=== PATIENT | male | born 1960 | race African-American/Black ===

== ENCOUNTER → 2020-12-16 08:50 | Outpatient (CLI) | payer MEDICAID, SELFPAY ==
--- NOTE | 2020-12-16 08:56 | ART_ITS ---
Reason For Study: PVD Procedure A bilateral lower extremity continuous wave Doppler with analog waveform analysis,segmental pressures,and ankle brachial indexes with exercise. Left Segmental Pressures Left brachial= 161mmHg. Left posterior tibial artery = 166mmHg. Left dorsalis pedis artery = 167mmHg. The left dorsalis pedis waveforms are biphasic. The left posterior tibial artery waveforms are triphasic. Right Segmental Pressures Right brachial= 147mmHg. Right thigh = 197mmHg. Right calf = 143mmHg. Right posterior tibial artery = 131mmHg. Right dorsalis pedis artery = 115mmHg. Right digit = 85 mmHg. The right dorsalis pedis waveforms are biphasic. The right posterior tibial artery waveforms are biphasic. Indices The right ankle brachial index by the dorsalis pedis is 0.71. The right ankle brachial index by the posterior tibial artery is 0.81. The right digital-brachial index is 0.53. The right post exercise ankle brachial index is 0.47. The left ankle brachial index by the dorsalis pedis is 1.04. The left ankle brachial index by the posterior tibial artery is 1.03. The left digital-brachial index is 0.55. The left post exercise ankle brachial index is 1.14. VL/Lower Ext Art Exam w/ Exercise Interpretation Summary Moderately severe right lower extremity arterial occlusive disease with abnorma l exercise response consistent with vascular claudication Normal left lower extremity resting ankle-brachial indices and normal left lowe r extremity response to exercise Abnormal bilateral digital brachial indices possibly consistent with small vess el disease or temperature effect. Clinical correlation would be appropriate. Ordering Physician: Jovanni Su Referring Physician: Fredis Parra Performed By: Alma Oviedo RVT
== END ==
PROVIDERS: PCP Physician Assistant; Referring Provider Surgery; Visit Provider Surgery
DX: I73.9 Peripheral vascular disease, unspecified (principal)
CPT/HCPCS: 93924

== ENCOUNTER 2021-02-04 06:24 | Day surgery (SDC) | payer MEDICAID, SELFPAY ==
[2020-12-24 15:43] VITALS: BMI 26.4
[2021-02-03 08:58] VITALS: BMI 26.4
[2021-02-04 06:45] LABS: Hematocrit 45.5 % (40-54); Hemoglobin 15.7 g/dL (13.0-16.5); Mean Corp Hgb Conc 34.5 g/dL (32-36); Mean Corpuscular Hgb 32.2 pg (27.0-32.0); Mean Corpuscular Volume 93.4 fL (80-94); Mean Platelet Vol. 8.5 fl (6.2-12.0); Platelet Count 256 K/mm3 (150-450); RBC Distribution Width CV 12.4 % (11.6-14.6); RBC Distribution Width SD 42.8 fl (35.1-43.9); Red Blood Count 4.87 M/mm3 (4.6-6.2); White Blood Count 6.9 K/mm3 (4.4-11.0)
[2021-02-04 07:03] LABS: Anion Gap 2 (5-15); BUN 10 mg/dL (7-18); BUN/Creat Ratio 9.7 RATIO (10-20); Calcium,Total 8.5 mg/dL (8.5-10.1); Chloride 107 mmol/L (98-107); Creatinine, Serum 1.03 mg/dL (0.70-1.30); EST Glomerular Filtration Rate 78 mL/min (>60); Est Glom Filt Rate - Afr Amer 94 mL/min (>60); Estimated Creatinine Clearance 82.66 ml/min; Glucose 98 mg/dL (74-106); Potassium 3.9 mmol/L (3.5-5.1); Sodium Level 139 mmol/L (136-145)
--- NOTE | 2021-02-04 08:05 | HP.PCM_ITS ---
History and Physical Date of Admission: 02/04/21 Intake Vital Signs 12/24/20 15:43 Height 6 ft Weight: 195 lb 4 oz BMI 26.4 BP 163/93 H Blood Pressure Location Rt brachial Position Sitting Respiration 18 Pulse 69 Pulse Source NIBP Temp 97.4 F L Temp Source Temporal Pulse Oximetry (%) 97 Oxygen Delivery Method room air Intake Visit Reasons: US 12/16 LEG NUMBNESS Allergies atorvastatin Allergy (Mild, Verified 12/24/20 15:44) rash [facility] Medical History (Updated 12/24/20 @ 15:20 by Alysia De Leon) CAD (coronary artery disease) Dyslipidemia HIV (human immunodeficiency virus infection) HTN (hypertension) Myocardial infarction Ocular hypertension PAD (peripheral artery disease) PVD (peripheral vascular disease) Sleep apnea Surgical History (Updated 12/24/20 @ 15:20 by Alysia De Leon) History of cardiac cath (~11/2013) History of esophagogastroduodenoscopy (EGD) (~2018) Family History (Updated 12/24/20 @ 15:38 by Alysia De Leon) Father Diabetes Heart disease Mother CAD (coronary artery disease) CVA (cerebral vascular accident) Social History Smoking Status: Former smoker HPI: Patient is a 60 y/o M I am following for peripheral arterial disease with claudication. Patient presents fro an update history and physical for an elective APLL procedure. Patient denies recent hospitalizations or illnesses. He denies medication changes. He stopped his Plavix and aspirin on Tuesday. He has a history of HIV and myocardial infarction. He has previously had intervention of the right lower extremity by Dr. Su. Patient denies any side effects or complications from anesthesia previously. DUSTIN DARBY, is a 60 M who presents to the office today for surgical co nsultation regarding right lower extremity calf claudication. This is a very pleasant 60-year-old gentleman. I assisted him as noted below with a advanced right lower extremity endovascular procedure treating a occluded right popliteal right tibioperoneal trunk proximal right posterior tibial and superficial femoral artery with endovascular angioplasty as noted. He states that about 3 years ago he did have a myocardial infarction since he seen me last. He had a cardiac catheterization but apparently the vessel involved was too small so he did not have angioplasty years cardiac stenting. Treated with medication. He has had trouble over the years with statin medications causing his rate rising of his CK. He is currently being managed with every 2 weekly home injection treatment. He has done well with his right leg except for the past several months. Now he will calf claudicate at ever shortening distances. He has difficult walking around [employer]. His previous history reflects the following intervention: It is of note that both retrograde access via the left common femoral to the right lower extremity was performed and retrograde access via the right posterior tibial at the level of the ankle was required. This was a highly challenging procedure. DATE OF SERVICE: July 26, 2014 PREOPERATIVE DIAGNOSIS: Quality of life limiting right lower extremity claudication. POSTOPERATIVE DIAGNOSES: Multisegmental peripheral vascular occlusive disease with occlusion of the right popliteal proximal portions of the posterior tibial, tibioperoneal trunk, peroneal and anterior tibial. PROCEDURE: Abdominopelvic bilateral lower extremity arteriogram right popliteal, tibioperoneal trunk and posterior tibial 3.5 x 210 mm EverCross; angioplasty right posterior tibial, tibioperoneal trunk, popliteal and distal superficial femoral artery 5 x 120 mm EverCross angioplasty. Subsequent to the angioplasty, there is now directed inline flow from the right and reconstitution of flow within the right popliteal, tibioperoneal trunk and posterior tibial. There is evidence of flow within the proximal right anterior tibial and peroneal albeit with small heavily diseased vessels. Left lower extremity demonstrates a patent superficial femoral artery. In the distal left popliteal, there is 50% narrowing just at the bifurcation of the tibioperoneal trunk. There also appears to be 70% to 80% stenosis of the very proximal portion of the left anterior tibial. There is initial 3-vessel runoff to the left lower extremity. Furthermore detail images were not pursued in means of saving contrast. IMPRESSION: Occluded right popliteal, tibioperoneal trunk and proximal portions of the anterior tibial, peroneal and posterior tibial with reconstituted flow through the popliteal, tibioperoneal trunk and posterior tibial in particular. A 50% stenosis of the left distal popliteal at the tibioperoneal trunk with at least 70% stenosis at the origin of the left anterior tibial. His newest testing reflects the following results: December 16, 2020 Reason For Study: PVD Procedure A bilateral lower extremity continuous wave Doppler with analog waveform analysis,segmental pressures,and ankle brachial indexes with exercise. Left Segmental Pressures Left brachial= 161mmHg. Left posterior tibial artery = 166mmHg. Left dorsalis pedis artery = 167mmHg. The left dorsalis pedis waveforms are biphasic. The left posterior tibial artery waveforms are triphasic. Right Segmental Pressures Right brachial= 147mmHg. Right thigh = 197mmHg. Right calf = 143mmHg. Right posterior tibial artery = 131mmHg. Right dorsalis pedis artery = 115mmHg. Right digit = 85 mmHg. The right dorsalis pedis waveforms are biphasic. The right posterior tibial artery waveforms are biphasic. Indices The right ankle brachial index by the dorsalis pedis is 0.71. The right ankle brachial index by the posterior tibial artery is 0.81. The right digital-brachial index is 0.53. The right post exercise ankle brachial index is 0.47. The left ankle brachial index by the dorsalis pedis is 1.04. The left ankle brachial index by the posterior tibial artery is 1.03. The left digital- brachial index is 0.55. The left post exercise ankle brachial index is 1.14. VL/Lower Ext Art Exam w/ Exercise Interpretation Summary Moderately severe right lower extremity arterial occlusive disease with abnormal exercise response consistent with vascular claudication Normal left lower extremity resting ankle-brachial indices and normal left lower extremity response to exercise Abnormal bilateral digital brachial indices possibly consistent with small vessel disease or temperature effect. Clinical correlation would be appropriate. Ordering Physician: Jovanni Su Referring Physician: Fredis Prara Performed By: Alma Oviedo RVT 12/16/20 1153Date ROS General General: No weight change, appetite, fatigue, colon cancer, breast cancer or weakness HEENT HEENT: No difficulty swallowing, eye injury, eye surgery, swollen glands or hoarseness Endo Endocrine: No thyroid disease, diabetes mellitus, thyroid cancer, Hair loss, heat intolerance or cold intolerance Musc Musculoskeletal: No back problems, arthritis, rheumatoid arthritis, gout or joint pain Cardio Cardiovascular: Yes heart disease, high blood pressure and heart attack; No murmur, pacemaker, atrial fibrillation, heart stent, palpitations, shortness of breat with exertion or chest pain Psych Psychiatric: No depression, anxiety or hearing voices Resp Respiratory: No shortness of breath, Yes sleep apnea, No cough, No COPD, No asthma, No emphysema and No wheezing Gastro Gastrointestinal: No abdominal pain, No nausea or vomiting, No diarrhea, No constipation, No blood in stool, No acid reflux, No hemorrhoids, No ulcers, No gallbladder problem and No black,tarry stools Chris Hematologic: Yes blood thinners, No blood disorders, No bleeding, No anemia and No blood clots Neuro Neurologic: No weakness Exam Const General: cooperative, healthy appearing, comfortable and no acute distress Nutritional Appearance: average body habitus Orientation: alert and awake HENUT Head: normal to inspection Eyes General: appearance normal, both eyes and all related structures Resp Effort & Inspection: normal respiratory effort Auscultation: clear to auscultation bilaterally Cardio Rate: regular rate Rhythm: regular rhythm Other: Bilateral femoral pulses 3+. Left popliteal 3+. Left DP 2+. Left PT 3+. Right popliteal 0. Right posterior tibial 3+. Right DP 1+ GI Palpation: soft and no hepatosplenomegaly Auscultation: normal bowel sounds and no bruits Musc Cervical Spine: normal cervical lordosis Skin General: no rashes or lesions noted Neuro General: patient alert, patient awake and patient oriented x3 Extrem General: no calf tenderness bilaterally Psych Appearance: grossly normal COVID (Procedure Consent) Procedure Criteria Procedure Criteria: Yes Elective The surgeon/proceduralist and patient have discussed in detail the risk of exposure to and/or potential harm posed by the COVID-19 virus with having a surgery/procedure at this time versus the risk of delaying the surgery/procedure. It is not possible to know either the risk of delaying the surgery or procedure or chance of getting an infection with perfect accuracy, but a joint decision was made between the patient and the surgeon/proceduralist to proceed at this time with the scheduled surgery/procedure as indicated on the consent form. Assessment & Plan Assessment/Plan (1) PAD (peripheral artery disease): PLAN: Dr. Su will plan to perform an abdominal pelvic arteriogram with right lower extremity intervention. Procedure details, risks and benefits have been reviewed. Patient has had the opportunity to ask and have questions answered. Patient verbally understands and agrees with the plan. Of note per Dr. Su, As noted previously had to obtain access via the left common femoral and retrograde via the right posterior tibial at the ankle in order to salvage his situation. Hopefully that technique does not need to be utilized at this time. Charges/Coding Visit Charges OBSV E&M: 34723 Initial observation care L1 (No charge; update H&P)
--- NOTE | 2021-02-04 10:59 | OP.PCM_ITS ---
Problems Associated Problem List Diagnoses (1) PAD (peripheral artery disease): Report of Operation Date of Procedure: 02/04/21 Pre-Operative Diagnosis: Right lower extremity calf claudication Post-Operative Diagnosis: Right lower extremity calf claudication with diffuse irregular disease right distal superficial femoral artery and right popliteal artery Surgery/Procedure Performed:: Abdominal pelvic right lower extremity arteriogram with right superficial femoral artery and popliteal artery large vessel Hawk 1 atherectomy and right distal superficial femoral artery popliteal artery 6 x 200 mm ever cross angioplasty Description of Surgical Findings:: Timeout informed consent was obtained. 60-year-old gent was taken to the special procedures lab placed upon the table. Bilateral groins were sterilely prepped and draped. He received sodium bicarbonate loading preprocedure. Throughout the procedure and aliquots he received a total of 50 mcg of fentanyl and 4 mg of Versed his intravenous sedation. Under ultrasound guidance the left common femoral artery was identified 2% lidocaine was instilled as local anesthetic a total of 10 cc was used. Under ultrasound guidance a micropuncture needle was used to gain retrograde access into the left common femoral artery followed by Salinger wire technique followed by micropuncture sheath followed by 035 J-wire followed by a 5 Japanese Terumo sheath. Using an 035 angled Glidewire and a 5 Japanese universal flush catheter was placed in the distal abdominal aorta. 10 cc a second of 8 cc of contrast was used to obtain a abdominal pelvic arteriogram. Using the Glidewire the flush catheter advanced down into the proximal right superficial femoral artery and then static views were obtained of the right upper leg and below the knee area. Having achieved that I felt that I could perform intervention due to the multiple areas of clinic significant stenosis involving the right distal superficial femoral artery and popliteal artery. I placed an 035 Magic wire exchanged out the 5 Japanese sheath for a 7 Japanese destination sheath. The patient received 10,000 and's of heparin. I then was able to use an 035 Glidewire and an 035 quick cross catheter and gain access through the area of stenosis. I placed a quick cross catheter infrageniculate and then placed a 6 mm spider device into the infrageniculate tibial peroneal trunk. Then I used a Hawk 1 large vessel device and did atherectomy of the right distal superficial femoral artery and right popliteal artery. 4 separate complete passes with emptying of the chamber were performed. There was dramatic improvement in the areas of stenosis. Then placed a 6 x 200 mm ever cross balloon perform balloon angioplasty of said area. This was only done up to 9 jaquelin of pressure. Completion views demonstrated dramatic improvement from preoperatively. There appeared to be just some slight periarterial extravasation within the adventitia. I replaced the balloon placed into an atmosphere of 4 jaquelin and held it for another 3 minutes. The patient had absolutely no discomfort in the right popliteal space. Completion views of the right lower extremity were obtained. Subsequently the sheath was withdrawn over wire. I exchanged out for a short 7 Japanese sheath. A 6-7 Japanese minx device was deployed in the left groin with good hemostasis. The patient then did receive 10 mg of protamine intravenously. He had a 1+ right DP pulse and a bounding 3+ right PT pulse. No discomfort throughout the procedure. The right foot remained warm and viable throughout. He was subsequently taken to the holding room. Images demonstrated patent though slightly irregular distal abdominal aorta with patent bilateral common axis external iliacs and internal iliacs. The right pr oximal superficial femoral and profundofemoral are widely patent. There is a shelflike plaque at Mandeep's canal on the right. There is diffuse disease of the right distal superficial femoral artery and then just at the superior aspect of the patella the popliteal appears to have a focal area of about 80 to 90% stenosis. There is irregularity throughout the entire popliteal. The infrageniculate popliteal has further disease of at least 70% over an area of 2 cm long. The right anterior tibial is rather diminutive. The right posterior tibial is the dominant vessel. Subsequent to the atherectomy and angioplasty now there is dramatic improvement in all areas of stenosis. There is some irregularity of the vessel in the immediate right retrogeniculate area and that small area of adventitial brief blush. There is good flow in line through the right posterior tibial in particular. It is of note that upon retrieval of the spider device there was no material within. Jovanni Su M.D., F.A.C.S. Surgeon: Jovanni Su Type of Anesthesia: IV Sedation and Local
[2021-02-04 15:15] VITALS: BP 136/68; PULSE 61; RESP 14; TEMP 36.4; O2SAT 98
[2021-02-04 15:30] VITALS: BP 148/73; PULSE 59; RESP 14; O2SAT 97
[2021-02-04] MEDS: 0.9% Normal Saline 1,000 ML 100 ML IV (15:37)
[2021-02-04] MEDS: Acetaminophen 325 MG Tablet 650 MG PO (15:37)
[2021-02-04 16:00] VITALS: BP 139/77; PULSE 63; RESP 14; O2SAT 97
[2021-02-04 16:30] VITALS: BP 154/74; PULSE 60; RESP 16; O2SAT 98
[2021-02-04 17:30] VITALS: BP 159/78; PULSE 64; RESP 14; O2SAT 98
--- NOTE | 2021-02-04 17:30 | NURSING ---
Dr. Su at bedside to see patient. notified of slight blood on groin dressing and elevated BP 150's systolic. Dr. Su was not concerned about the small amount of blood, ordered to give his home doses of Coreg and isosorbide for blood presure. Also ordered to change patients dressing prior to discharge. Pt still ok to be discharged after bedrest is up as long as his groin site remains soft and free from complication.
--- NOTE | 2021-02-04 17:40 | PCM.PN.SRG ---
Subjective Subjective Patient has no complaints other than back discomfort from having to lie still. No complaint of left groin pain. No complaint of right popliteal or calf pain Objective Data Objective Data Vital Signs: Vital Signs Temp Pulse Resp BP Pulse Ox 97.5 F L 64 14 159/78 H 98 02/04/21 15:15 02/04/21 17:30 02/04/21 17:30 02/04/21 17:30 02/04/21 17:30 Oxygen Delivery Method Room Air Weight: 195 lb Body Mass Index (BMI) 26.4 Lab / Micro Data Result Diagrams: 02/04/21 06:28 02/04/21 06:28 Labs: Laboratory Results - last 24 hr 02/04/21 06:28: Sodium 139, Potassium 3.9, Chloride 107, Carbon Dioxide 30.0, Anion Gap 2 L, BUN 10, Creatinine 1.03, Estim Creat Clear Calc 82.66, Est GFR (MDRD) Af Amer 94, Est GFR (MDRD) Non-Af 78, BUN/Creatinine Ratio 9.7 L, Glucose 98, Calcium 8.5 02/04/21 06:28: WBC 6.9, RBC 4.87, Hgb 15.7, Hct 45.5, MCV 93.4, MCH 32.2 H, MCHC 34.5, RDW Std Deviation 42.8, RDW Coeff of Sybil 12.4, Plt Count 256, MPV 8.5 Physical Exam Extremity Extremity Narrative: Left groin: Very minimal drainage on the dressing. Supple, nontender, Right popliteal space very soft supple nontender. 3+ right popliteal pulse. 3+ right posterior tibial pulse Assessment & Plan Assessment/Plan (1) PAD (peripheral artery disease): PLAN: Patient appears stable status post retrograde access left common femoral artery to perform intervention to the right lower extremity. He still has another 1 hour of bedrest. If he continues to make uncomplicated recovery he will be allowed for discharge. Jovanni Su M.D., F.A.C.S.
[2021-02-04] MEDS: Carvedilol 6.25 MG Tablet PO (17:54)
[2021-02-04] MEDS: Isosorbide Mononitrate 30 MG Tablet PO (17:54)
[2021-02-04 18:33] VITALS: BP 160/80; PULSE 68; RESP 14; TEMP 36.4; O2SAT 94
--- NOTE | 2021-02-04 19:15 | NURSING ---
1830 patients bedrest was completed. This RN assisted patient out OOB and to the restroom. He then walked around in the room and tolerated it well. His left groin site remained soft and free from signs of bleeding. The dressing was then changed per physician order. Patient IV was removed, discharge instructions again reviewed with patient. He was then discharged out in a wheelchair.
== END 2021-02-04 15:29 | disposition home or self-care (01) ==
LOC: CLSP 06:34 → PCU 02-05 09:44
PROVIDERS: PCP Physician Assistant; Referring Provider Surgery; Visit Provider Surgery
DX: I73.9 Peripheral vascular disease, unspecified (principal); I25.10 Atherosclerotic heart disease of native coronary artery without angina pectoris; E78.5 Hyperlipidemia, unspecified; I10 Essential (primary) hypertension; I25.2 Old myocardial infarction; G47.30 Sleep apnea, unspecified; Z79.899 Other long term (current) drug therapy; Z87.891 Personal history of nicotine dependence
CPT/HCPCS: 36200; 36245; 36415; 37225; 75625; 75710; 76937; 80048; 85027; 99152; 99153; C1714; C1760; J7030; J7040; Q9967; C1725; C1769; C1884; C1887; C1894

== ENCOUNTER → 2021-03-27 13:38 | Outpatient (CLI) | payer MEDICAID, SELFPAY ==
--- NOTE | 2021-03-27 13:40 | ART_ITS ---
Reason For Study: Claudication Procedure A bilateral lower extremity continuous wave Doppler with analog waveform analysis,segmental pressures,and ankle brachial indexes with exercise. Left Segmental Pressures Left brachial= 137mmHg. Left posterior tibial artery = 175mmHg. Left dorsalis pedis artery = 149mmHg. Left digit = 82 mmHg. The left dorsalis pedis waveforms are biphasic. The left posterior tibial artery waveforms are triphasic. Right Segmental Pressures Right brachial= 140mmHg. Right posterior tibial artery = 167mmHg. Right dorsalis pedis artery = 159mmHg. Right digit = 70 mmHg. The right dorsalis pedis waveforms are biphasic. The right posterior tibial artery waveforms are triphasic. Indices The right ankle brachial index by the dorsalis pedis is 1.14. The right ankle brachial index by the posterior tibial artery is 1.19. The right digital-brachial index is 0.50. The left ankle brachial index by the dorsalis pedis is 1.06. The left ankle brachial index by the posterior tibial artery is 1.25. The left digital-brachial index is 0.59. VL/Lower Ext Art Exam w/ Exercise Interpretation Summary Normal resting bilateral lower extremity ankle-brachial indices. Abnormal bilateral digital brachial indices at rest. The right EVELYNE at rest is 1.19 and immediately after exercise is 0.98 there is p artial recovery by 5 minutes. The left EVELYNE at rest is 1.25 and immediately after exercise 1.08 and there is r ecovery by 5 minutes. Both of the exercise indices do demonstrate a slight EVELYNE decline which would mora ggest a mild amount of occlusive disease. The location is not specified. Findings demonstrated improvement of the right lower extremity from the previou s testing with December 16, 2020. There is possible slight decline involving the left lower extremity fr om the previous study of 12/16/2020 Ordering Physician: Jovanni Su Referring Physician: Lg Brown Performed By: Alma Oviedo RVT
== END ==
PROVIDERS: PCP Physician Assistant; Referring Provider Surgery; Visit Provider Surgery
DX: I73.9 Peripheral vascular disease, unspecified (principal)
CPT/HCPCS: 93924

== ENCOUNTER 2021-09-28 13:56 | Outpatient (CLI) | payer MEDICAID, SELFPAY ==
--- NOTE | 2021-09-28 13:58 | ART_ITS ---
Reason For Study: Claudication Procedure A bilateral lower extremity continuous wave Doppler with analog waveform analysis,segmental pressures,and ankle brachial indexes with exercise. Left Segmental Pressures Left brachial= 152mmHg. Left posterior tibial artery = 188mmHg. Left dorsalis pedis artery = 185mmHg. Left digit = 94 mmHg. The left dorsalis pedis waveforms are biphasic. The left posterior tibial artery waveforms are biphasic. Right Segmental Pressures Right brachial= 159mmHg. Right posterior tibial artery = 163mmHg. Right dorsalis pedis artery = 158mmHg. Right digit = 94 mmHg. The right dorsalis pedis waveforms are biphasic. The right posterior tibial artery waveforms are biphasic. Indices The right ankle brachial index by the dorsalis pedis is 0.99. The right ankle brachial index by the posterior tibial artery is 1.03. The right digital-brachial index is 0.59. The right post exercise ankle brachial index is 0.87. The left ankle brachial index by the dorsalis pedis is 1.16. The left ankle brachial index by the posterior tibial artery is 1.18. The left digital-brachial index is 0.59. The left post exercise ankle brachial index is 1.16. VL/Lower Ext Art Exam w/ Exercise Interpretation Summary Normal right lower extremity PT and DP ankle-brachial index of 1.03 and 0.99 re spectively. However Doppler waveforms are present suggesting mild to moderate disease. The right di gital brachial index is abnormal at 0.59 With exercise the right EVELYNE goes from resting 1.03 to immediately after exercis e at 0.87 and there is recovery by 7 minutes. These findings are consistent with clinical significa nt occlusive disease more proximally but the level of the disease cannot be determined Left lower extremity normal resting PT and DP ankle-brachial index of 1.18 and 1.16 respectively but again biphasic Doppler waveforms are identified suggesting a mild to moderate a mount of occlusive disease. Left digital brachial index is abnormal at 0.59. With exercise the lef t EVELYNE goes from resting 1.18 to immediately after exercise at 1.16 which is essentially normal The above findings are not dissimilar from the previous examination of [facility] 2020 Ordering Physician: Jovanni Su Referring Physician: Lg Brown Performed By: Alma Oviedo RVT
== END 2021-09-28 23:59 | disposition home or self-care (01) ==
LOC: CVS 13:57
PROVIDERS: PCP Physician Assistant; Referring Provider Surgery; Visit Provider Surgery
DX: I73.9 Peripheral vascular disease, unspecified (principal)
CPT/HCPCS: 93924

== ENCOUNTER 2021-10-02 13:51 | Outpatient (CLI) | payer MEDICAID, SELFPAY ==
--- NOTE | 2021-10-02 13:53 | ADUL_ITS ---
Reason For Study: PAD Right Velocities Ext. Iliac Artery, dist = 138.8 cm./sec. Common Femoral Artery, mid = 89.1 cm./sec. Supf Femoral Artery, prox = 85.1 cm./sec. Supf Femoral Artery, mid = 92.4 cm./sec. Supf Femoral Artery, dist. = 85.5 cm./sec. Profunda Femoral Artery = 70.5 cm./sec. Popliteal Artery, prox. = 94.3 cm./sec. Popliteal Artery, mid = 253.4 cm./sec. Popliteal Artery, dist = 199.2 cm./sec. Post. Tibial Artery, prox = 125.8 cm./sec. Post. Tibial Artery, mid = 93.5 cm./sec. Post. Tibial Artery, dist = 104.4 cm./sec. Peroneal Artery, prox = 72.3 cm./sec. Peroneal Artery, mid = 61.3 cm./sec. Peroneal Artery,dist = 61.3 cm./sec. Ant. Tibial Artery, prox = 69.5 cm./sec. Ant. Tibial Artery, mid = 18.8 cm./sec. Ant. Tibial Artery, dist = 25.8 cm./sec. Procedure Exam performed in department. /US Art Duplex Unilat Lower Ext Interpretation Summary Irregular calcific plaque distal right external iliac artery although with trip hasic flow. Patent right superficial femoral artery and profundofemoral artery Greater than 50% stenosis right mid popliteal artery Patent right posterior tibial and peroneal and anterior tibial arteries althoug h with diminished flow in the mid to distal right anterior tibial artery Ordering Physician: Jovanni Su Referring Physician: Lg Brown Performed By: Alma Oviedo RVT
== END 2021-10-02 23:59 | disposition home or self-care (01) ==
LOC: CVS 13:51
PROVIDERS: PCP Physician Assistant; Visit Provider Surgery
DX: I73.9 Peripheral vascular disease, unspecified (principal)
CPT/HCPCS: 93926